=== PATIENT | male | born 1995 | race Caucasian/White ===

== ENCOUNTER 2019-07-24 23:43 | Emergency (ER) | payer BC, SELFPAY ==
--- NOTE | ~2019-07-24 | XR_ITS ---
EXAMINATION: XR chest 2V DATE: 07/25/2019 00:46 INDICATION: Cough, fever and chest pain TECHNIQUE: PA and lateral views of the chest were obtained. COMPARISON: None FINDINGS: There are couple calcified nodules in the right lung consistent with old granulomatous disease. The l ungs are otherwise clear with no focal airspace opacities, pulmonary edema, pleural effusion or pneum othorax. The cardiomediastinal silhouette is normal. Visualized bones and soft tissues are unremarkab le. IMPRESSION: 1. No acute cardiopulmonary disease. Reviewed, dictated and finalized at location A. TESTAMENT PROFESSOR
[2019-07-24 23:50] VITALS: BP 164/95; PULSE 102; RESP 16; TEMP 37.4; O2SAT 98
--- NOTE | 2019-07-25 00:01 | ECG_ITS ---
Measurements Intervals [place] Rate: 92 P: 39 NC: 156 QRS: 50 QRSD: 87 T: 13 QT: 334 QTc: 414 Interpretive Statements SINUS RHYTHM NORMAL ECG Electronically Signed On 07-25-2019 7:00:44 [employer] by Pratik Villegas D.O.
--- NOTE | 2019-07-25 00:05 | ED.URI ---
HPI - URI/Sore Throat General Chief Complaint: Upper Respiratory Infection <Josey Georges PA-C - Last Filed: 07/25/19 01:46> Stated Complaint: sick x 3 days <Josey Georges PA-C - Last Filed: 07/25/19 01:46> Time Seen by Provider: 07/24/19 23:55 <Josey Georges PA-C - Last Filed: 07/25/19 01:46> Source: patient <NORM Troncoso Last Filed: 07/25/19 01:46> Mode of arrival: ambulatory <Josey Georges PA-C - Last Filed: 07/25/19 01:46> Limitations: no limitations <Josey Georges PA-C - Last Filed: 07/25/19 01:46> History of Present Illness HPI Narrative: This is a 24 year old male that presents to the ER for cold symptoms x 2 days. Reports fever, cough, congestion, sore throat and myalgias. Also reports chest pain when he coughs. He did not get an influenza vaccine this year. Denies shortness of breath. <Josey Geroges PA-C - Last Filed: 07/25/19 01:46> Related Data Allergies/Adverse Reactions: Allergies Allergy/AdvReac Type Severity Reaction Status Date / Time No Known Allergies Allergy Verified 07/25/19 00:09 <Josey Georges PA-C - Last Filed: 07/25/19 01:46> Review of Systems Review of Systems: Narrative: CONSTITUTIONAL: Reports fever, chills ENT: Denies rhinorrhea, congestion, sore throat. Denies otalgia. CARDIOVASCULAR: Reports chest pain RESPIRATORY: Reports cough. Denies dyspnea. MUSCULOSKELETAL: Reports myalgia. <Josey Georges PA-C - Last Filed: 07/25/19 01:46> All systems reviewed & are unremarkable except as noted in HPI and below <Josey Georges PA-C - Last Filed: 07/25/19 01:46> [facility] Surgical History Surgical History: Surgical History (Updated 07/25/19 @ 00:09 by Josey Georges PA-C) History of tonsillectomy <Josey Georges PA-C - Last Filed: 07/25/19 01:46> Social History Social History: Social History (Updated 07/25/19 @ 00:10 by Josey Georges PA-C) Smoking status: Never smoker <Josey Georges PA-C - Last Filed: 07/25/19 01:46> Exam Narrative: Exam Narrative: GENERAL: Well-appearing, well-nourished, and in no acute distress. HEAD: Normocephalic, atraumatic. EYES: PERRLA and EOMI. ENT: Nares clear, no rhinorrhea or epistaxis. Mucous membranes moist. Oropharynx without tonsillar hypertrophy exudate or other lesions. Bilateral TMs pearly dacosta non-bulging NECK: Supple. No adenopathy or masses. CHEST: Clear to auscultation. No respiratory distress. No wheezes rales or rhonchi HEART: Regular rate and rhythm. No murmur heard. Normal peripheral pulses. EXTREMITIES: Normal range of motion. No edema. SKIN: Warm, dry, no rash. NEURO: No focal deficits. Alert and oriented x3. PSYCH: Normal mood and affect <Josey Georges PA-C - Last Filed: 07/25/19 01:46> Course Vital Signs Vital signs: Vital Signs Temperature 99.3 F 07/24/19 23:50 Pulse Rate 102 H 07/24/19 23:50 Respiratory Rate 16 07/24/19 23:50 Blood Pressure 164/95 H 07/24/19 23:50 Pulse Oximetry 98 07/24/19 23:50 Temperature 98.8 F 07/25/19 01:48 Pulse Rate 92 07/25/19 01:48 Respiratory Rate 18 07/25/19 01:48 Blood Pressure 148/84 H 07/25/19 01:48 Pulse Oximetry 98 07/25/19 01:48 <Josey Georges PA-C - Last Filed: 07/25/19 01:46> Vital Signs Temperature 99.3 F 07/24/19 23:50 Pulse Rate 102 H 07/24/19 23:50 Respiratory Rate 16 07/24/19 23:50 Blood Pressure 164/95 H 07/24/19 23:50 Pulse Oximetry 98 07/24/19 23:50 Temperature 98.8 F 07/25/19 01:48 Pulse Rate 92 07/25/19 01:48 Respiratory Rate 18 07/25/19 01:48 Blood Pressure 148/84 H 07/25/19 01:48 Pulse Oximetry 98 07/25/19 01:48 <Amanda Molina MD - Last Filed: 07/25/19 05:09> MDM - URI/Sore Throat MDM Narrative Medical decision making narrative: Patient presents to the ER for cold symptoms x 2 days. Also reports chest pain, mostly with coughing. Patient is afebrile and nontoxic appea
[2019-07-25] MEDS: OSELTAMIVIR PHOSPHATE 75 MG CAP PO (00:23)
[2019-07-25 00:30] LABS: Basophils Percent Auto 0.3 % (0.2-1.2); Eosinophils Percent Auto 0.5 % (0-4.4); Hematocrit 45.2 % (42.0-52.0); Hemoglobin 15.1 g/dL (14.0-18.0); Immature Granulocyte Absolute 0.01 K/mm3 (0.00-0.031); Immature Granulocyte Percent A 0.2 % (0-0.5); Lymphocytes Absolute Auto 1.49 K/mm3 (0.9-3.2); Mean Corpuscular HGB Conc 33.4 g/dl (32-36); Mean Corpuscular Hemoglobin 28.8 pg (26-34); Mean Corpuscular Volume 86.3 fl (80-100); Mean Platelet Volume 10.5 fl (7.4-10.4); Monocytes Absolute Auto 0.5 K/mm3 (0.1-0.6); Monocytes Percent Auto 8.9 % (2.6-8.5); Neutrophils Absolute Auto 3.7 K/mm3 (1.3-6.7); Neutrophils Percent Auto 64.1 % (45.5-73.1); Platelet Count Result 157 k/mm3 (150-375); Red Blood Count 5.24 M/mm3 (4.6-6.20); White Blood Count 5.7 K/mm3 (4.5-10.0)
[2019-07-25 00:37] LABS: Blood Urea Nitrogen 13 mg/dL (9-20); Calcium 8.9 mg/dL (8.4-10.2); Carbon Dioxide 28 mmol/L (22-30); Chloride 97 mmol/L (98-107); Estimated Glomerular Filt Rate > 60; Glucose 111 mg/dL (75-110); Potassium 3.9 mmol/L (3.4-5.0); Sodium 140 mmol/L (137-145)
[2019-07-25 00:40] VITALS: BP 169/98; BP 178/101; PULSE 88; PULSE 96
[2019-07-25 00:41] VITALS: BP 156/84; PULSE 100
[2019-07-25 00:48] LABS: Troponin I < 0.012 ng/mL (0.000-0.034)
[2019-07-25] MEDS: SODIUM CHLORIDE 0.9% IV 1,000 ML 999 ML IV CONT (01:09)
[2019-07-25] MEDS: KETOROLAC 30 MG/ML VIAL (*BKC) IV PUSH (01:09)
[2019-07-25 01:48] VITALS: BP 148/84; PULSE 92; RESP 18; TEMP 37.1; O2SAT 98
== END 2019-07-25 02:27 | disposition home or self-care (01) ==
PROVIDERS: Physician Assistant; Emergency Provider General Practice
DX: J10.1 Influenza due to other identified influenza virus with other respiratory manifestations (principal)
CPT/HCPCS: 36415; 71046; 80048; 84484; 85025; 87081; 87804; 87880; 93005; 96361; 96374; 99284; A9270; J1885; J7030

== ENCOUNTER 2020-09-29 13:33 | Outpatient (CLI) | payer BC, SELFPAY ==
--- NOTE | ~2020-09-29 | US_ITS ---
EXAMINATION: US scrotum doppler DATE: 09/29/2020 14:15 INDICATION: Right lower quadrant/inguinal pain. TECHNIQUE: Testicular sonogram utilizing grayscale and Doppler COMPARISON: None. FINDINGS: The right testis measures 3.9 x 2.3 x 3.0 cm. The left testis measures 3.2 x 2.1 x 2.7 cm. Symmetric normal grayscale appearance to both testes. There is normal vascular flow to both testes. 1.9 cm anec hoic right epididymal cyst. The right epididymis is otherwise normal with normal vascular flow. The l eft epididymis is normal with normal vascular flow. There is no varicocele or hydrocele. IMPRESSION: 1. 1.9 cm right epididymal head cyst. Otherwise normal scrotal ultrasound. Reviewed, dictated and finalized at location A.
--- NOTE | ~2020-09-29 | US_ITS ---
EXAMINATION: US soft tissue groin RT DATE: 09/29/2020 14:28 INDICATION: Right inguinal pain. Right lower quadrant abdominal pain. TECHNIQUE: Multiple grayscale and Doppler ultrasound images of the abdomen were obtained. COMPARISON: None FINDINGS: There is no hernia or lymphadenopathy in right inguinal region. IMPRESSION: 1. No abnormality in right inguinal region in the patient's area of concern. Reviewed, dictated and finalized at location B.
== END 2020-09-29 13:34 | disposition home or self-care (01) ==
PROVIDERS: PCP Internal Medicine; Visit Provider Nurse Practitioner
DX: R10.31 Right lower quadrant pain (principal); R10.2 Pelvic and perineal pain; L72.0 Epidermal cyst
CPT/HCPCS: 76870; 76882; 93976

== ENCOUNTER → 2020-10-21 13:04 | Outpatient (CLI) | payer BC, SELFPAY ==
--- NOTE | ~2020-10-21 | XR_ITS ---
XR abdomen/kub 1V DATE: 10/21/2020 13:27 INDICATION: Right renal colic TECHNIQUE: AP projection, 2 views COMPARISON: 10/21/2020 CT abdomen pelvis FINDINGS: There is a prominent amount of fecal material in the right colon. No bowel obstruction is e vident. The psoas shadows are intact. No visceromegaly or significant abnormal calcification is detec chelita. Mild dextroscoliosis of the lumbar spine and mild levoscoliosis of the thoracic spine. No significant skeletal abnormality is noted otherwise. IMPRESSION: Prominent amount fecal material in the right colon; no bowel obstruction No significant abnormal calcifications are detected Reviewed, dictated and finalized at Location A. Reviewed, dictated and finalized at location A. IMPRESSION: Prominent amount fecal material in the right colon; no bowel obstru ction No significant abnormal calcifications are detected
--- NOTE | ~2020-10-21 | CT_ITS ---
EXAMINATION: CT abdomen pelvis wo con DATE: 10/21/2020 13:26 INDICATION: Right renal colic TECHNIQUE: Computed tomography (CT) of the abdomen and pelvis was performed without intravenous contr ast. Automated exposure control and iterative reconstruction technique were employed. Exam dose: 121 9.38 mGy-cm total exam DLP. COMPARISON: 10/21/2020 KUB FINDINGS: Left lower lobe calcified pulmonary granuloma. The lung bases are clear of infiltrate or co nsolidation. Normal heart size. No pericardial or pleural effusion. The liver, gallbladder, bile ducts, spleen, pancreas, pancreatic duct and adrenal glands appear bk l on this limited noncontrast examination. There is mild perinephric stranding of the kidneys, greater on the right; recommend clinical correlat ion to exclude any urinary tract infection. No urinary tract calculus or hydroureteronephrosis. The u rinary bladder is unremarkable. Some prostate calcifications are noted. Normal appendix. No bowel obstruction, bowel wall thickening, pneumatosis or intraperitoneal free air . Small fat-containing umbilical hernia. Included skeletal structures are unremarkable. IMPRESSION: Mild perinephric stranding of the kidneys; recommend clinical correlation to exclude any urinary tract infection Reviewed, dictated and finalized at Location A. Reviewed, dictated and finalized at location A. IMPRESSION: Mild perinephric stranding of the kidneys; recommend clinical anne elation to exclude any urinary tract infection
== END ==
PROVIDERS: Visit Provider Urology
DX: N23 Unspecified renal colic (principal)
CPT/HCPCS: 74018; 74176

== ENCOUNTER 2020-11-14 07:32 | Outpatient (CLI) | payer BC, SELFPAY ==
--- NOTE | ~2020-11-14 | MR_ITS ---
EXAMINATION: MR lumbar spine wo/w con DATE: 11/14/2020 08:51 INDICATION: Cauda equina syndrome. TECHNIQUE: Magnetic resonance imaging (MRI) of the lumbar spine was performed without and with 20 mL MultiHance intravenous contrast. Sequences included sagittal T2-weighted FSE, sagittal T2-weighted FS FSE, and sagittal and axial T1-weighted FSE. Postcontrast sequences included axial T2-weighted FSE a nd axial and sagittal T1-weighted FS FSE. COMPARISON: None FINDINGS: There is 4 degrees dextrocurvature of lumbar spine. There are Schmorl's nodes at multiple l evels. Intervertebral disc heights are normal. The distal spinal cord signal intensity is normal. The conus medullaris is at L1. The following disc levels are specifically discussed: L1-L2: The disc does not extend beyond the endplate margin. There is mild left facet joint osteoarthr itis. There is no neural foraminal stenosis. There is no central canal stenosis. L2-L3: The disc does not extend beyond the endplate margin. There is mild bilateral facet joint osteo arthritis. There is no neural foraminal stenosis. There is no central canal stenosis. L3-L4: The disc does not extend beyond the endplate margin. There is mild bilateral facet joint osteo arthritis. There is no neural foraminal stenosis. There is no central canal stenosis. L4-L5: The disc does not extend beyond the endplate margins. There is mild right facet joint osteoart hritis. There is no neural foraminal stenosis. There is no central canal stenosis. L5-S1: There is a right subarticular zone protrusion. There is moderate bilateral facet joint osteoar thritis. There is mild right neural foraminal stenosis. There is mild central canal stenosis. IMPRESSION: 1. Mild lumbar spondylosis. Reviewed, dictated and finalized at location A. IMPRESSION: 1. Mild lumbar spondylosis.
[2020-11-14 08:19] LABS: Estimated Glomerular Filt Rate > 60
== END 2020-11-14 07:33 | disposition home or self-care (01) ==
LOC: ANHIMG 07:37
PROVIDERS: PCP Internal Medicine; Visit Provider Internal Medicine
DX: G83.4 Cauda equina syndrome (principal); M54.16 Radiculopathy, lumbar region; M47.816 Spondylosis without myelopathy or radiculopathy, lumbar region
CPT/HCPCS: 72158; A9577

== ENCOUNTER 2024-04-04 00:49 | Day surgery (SDC) | payer BC, SELFPAY ==
[2024-03-27 12:03] VITALS: BMI 39.4
[2024-04-04 13:42] VITALS: BP 139/86; PULSE 93; RESP 17; TEMP 36.3; O2SAT 98; BMI 40.6
[2024-04-04] MEDS: LACTATED RINGERS 1,000 ML 150 ML IV CONT (14:02)
--- NOTE | 2024-04-04 14:02 | WPDANESEPPF ---
Anes - Initial Pre Proc Eval Procedure: Operation Date: 04/04/24 15:00 Proposed Procedures p Colonoscopy - Waldo Feliciano MD Date/Time: 04/04/24 14:02 Surgeon: Waldo Feliciano MD Pre Op Diagnosis: melena Patient Data Age: 28 Gender: M Height: 1.83 m Weight: 135.8 kg Last Vital Signs Temp 36.3 C L 04/04/24 13:42 Pulse 93 04/04/24 13:42 Resp 17 04/04/24 13:42 BP 139/86 04/04/24 13:42 Pulse Ox 98 04/04/24 13:42 O2 Del Method Room Air 04/04/24 13:42 Allergies Allergy/AdvReac Type Severity Reaction Status Date / Time No Known Allergies Allergy Verified 04/04/24 13:41 Home Medications Medication Instructions Recorded Confirmed Type dicyclomine 20 mg tablet 20 mg PO QID #120 tabs 02/22/24 04/04/24 Rx Patient hx anesthesia problems: none Family hx anesthesia problems: none Results Review: All pre-operative results and documents have been reviewed as part of the pre-operative evaluation. [facility] Past Medical History Medical History Cauda equina compression Constipation Establishing care with new doctor, encounter for Exposure to STD Lumbar radiculopathy Screening for endocrine disorder Screening for lipid disorders Surgical History Surgical History History of tonsillectomy Social History Social History Social History: Pt lives with his g/f. 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 Gender identity (if verbalized by the patient): Male Sexual Orientation (if Verbalized by the Patient): Straight or Heterosexual Spiritual care concerns: No Anes - Eval Final PreProcedure Day of Procedure 04/04/24 14:02 Patient weight: morbidly obese Heart: regular rate and rhythm Lungs: clear to auscultation Airway: Mallampati scale class II Neurological: alert and oriented Last oral intake: >/= 8 hours ASA classification: III Emergent: no Anesthetic plan: proceed Anesthesia type and monitoring: general GIVS and standard monitoring Results Review: All pre-operative results and documents have been reviewed as part of the pre-operative evaluation. Informed Consent: The patient's anesthetic plan and its attendant risks and benefits were discussed with the patient/family/POA. Questions were solicited and answers provided to the satisfaction of the patient/family/POA.
--- NOTE | 2024-04-04 14:15 | P.HP_ITS ---
History of Present Illness History of Present Illness Consent: Risks, benefits, and alternatives have been discussed and questions answered. Patient agrees to proceed with procedure. Chief complaint: blood in stool Narrative: Tomer Fragoso is a 28 year old male here for first screening colonoscopy, noted rectal bleeding Review of Systems Review of Systems: All systems reviewed & are unremarkable except as noted in HPI and below PMFSH Past Medical History Medical History (Updated 04/04/24 @ 14:15 by Waldo Feliciano MD) Cauda equina compression Constipation Establishing care with new doctor, encounter for Exposure to STD Lumbar radiculopathy Rectal bleeding Screening for endocrine disorder Screening for lipid disorders Surgical History Surgical History History of tonsillectomy Social History Social History Social History: Pt lives with his g/f. Smoking status: Never smoker Second hand tobacco smoke exposure: No Alcohol intake: never Substance use: never Substance use type: does not use Do You Feel Safe in your Home?: Yes Lack of Transportation: No Lack of Food: Never True Current Housing: I Have Housing Concerned About Future Housing: No Difficulty Paying Gas/Electric Bills: No Difficulty Paying for Meds: No Currently Unemployed: No Education: Don't Know Difficulty w/ Childcare or Family Care: No Living arrangements: with family Occupation/Education: occupation Additional occupation/education comments: [employer] Gender identity (if verbalized by the patient): Male Sexual Orientation (if Verbalized by the Patient): Straight or Heterosexual Spiritual care concerns: No Meds Home Medications and Allergies Home Medications Medication Instructions Recorded Confirmed Type dicyclomine 20 mg tablet 20 mg PO QID #120 tabs 02/22/24 04/04/24 Rx Allergies Allergy/AdvReac Type Severity Reaction Status Date / Time No Known Allergies Allergy Verified 04/04/24 13:41 Vital Signs Vital Signs - 24 hr 04/04/24 13:42 Temperature 97.4 F L Pulse Rate 93 Respiratory Rate 17 Blood Pressure 139/86 Pulse Oximetry 98 Oxygen Delivery Room Air Exam Const: General: comfortable and no acute distress HENMT: Face/Nose/Sinus: Normal nares present Eyes: General: appearance normal, both eyes and all related structures Neck: Neck: no JVD Resp: Auscultation: clear to auscultation bilaterally Cardio: Rate: regular rate Rhythm: regular rhythm GI: Inspection: non-distended GI Palp: Yes Soft to palpation Skin: General skin exam: normal color Neuro: General: gait normal Speech: normal speech Extrem: General: normal to inspection Psych: Mental Status: mental status grossly normal Assessment and Plan Assessment and plan (1) Rectal bleeding: Code(s): K62.5 - Hemorrhage of anus and rectum Status: Acute Assessment and Plan: colonoscopy
[2024-04-04 14:25] VITALS: BP 124/67; PULSE 76; RESP 20; O2SAT 97
[2024-04-04 14:32] VITALS: BP 122/68; PULSE 79; RESP 20; O2SAT 98
[2024-04-04 14:42] VITALS: BP 117/84; PULSE 68; RESP 20; O2SAT 96
== END 2024-04-04 14:54 | disposition home or self-care (01) ==
PROVIDERS: PCP Family Medicine; Visit Provider Internal Medicine Gastroenterology
PROC: 0DJD8ZZ Inspection of Lower Intestinal Tract, Via Natural or Artificial Opening Endoscopic (ICD-10-PCS; CPT 45378; principal; 2024-04-04 15:00)
DX: K92.1 Melena (principal); K64.8 Other hemorrhoids; E66.01 Morbid (severe) obesity due to excess calories; Z68.41 Body mass index [BMI] 40.0-44.9, adult
CPT/HCPCS: 45378; J2704; J7120